=== PATIENT | female | born 1955 | race Caucasian/White ===

== ENCOUNTER → 2018-09-21 | Outpatient (CLI) | payer OTHER | LOC: RAD 12:33 | DX: Z12.31 Encounter for screening mammogram for malignant neoplasm of breast (principal) ==

== ENCOUNTER → 2020-06-07 | Outpatient (CLI) | payer OTHER | LOC: BC 10:02 | DX: Z12.31 Encounter for screening mammogram for malignant neoplasm of breast (principal) ==

== ENCOUNTER → 2021-06-10 | Outpatient (CLI) | payer OTHER | LOC: BC 10:34 | DX: Z12.31 Encounter for screening mammogram for malignant neoplasm of breast (principal) ==